=== PATIENT | female | born 1935 | race Caucasian/White ===

== ENCOUNTER 2019-12-19 18:26 | Inpatient (IN) | payer MEDICARE, OTHER ==
[~2019-12-19] VITALS: Ht 160 cm; Wt 61.7 kg
--- NOTE | 2019-12-19 19:03 | NUR ---
[employer]EW[employer] VARGHESE SAXENA CALLED FOR EVALUATION.
[2019-12-19] MEDS ORDERED: FERR325T23 PO (19:06)
[2019-12-19] MEDS ORDERED: ASCO-352 PO (19:06)
[2019-12-19] MEDS ORDERED: MULT-1200 PO (19:06)
[2019-12-19] MEDS ORDERED: MIRT15TA7 PO (19:06)
[2019-12-19] MEDS ORDERED: PRAV40TA3 PO (19:06)
[2019-12-19] MEDS ORDERED: CLON1TAB12 PO (19:06)
[2019-12-19] MEDS ORDERED: ASPI-1169 PO (19:06)
[2019-12-19] MEDS ORDERED: OLAN5TAB3 PO ×2 (19:06)
[2019-12-19] MEDS ORDERED: FLUO40CA49 PO (19:06)
[2019-12-19] MEDS ORDERED: LEVO25TA9 PO (19:06)
[2019-12-19] MEDS ORDERED: CALC1TAB30 PO (19:06)
--- NOTE | 2019-12-19 19:46 | NUR ---
PINKY, PSYCH ER NURSE AT BEDSIDE FOR EVAL
--- NOTE | 2019-12-19 20:05 | NUR ---
PER RN SUP PT ASSIGNED TO 212-B
--- NOTE | 2019-12-19 20:21 | NUR ---
REPORT GIVEN TO HEMANTH POPE FOR PAULA
[2019-12-19] MEDS ORDERED: MAGNESIUM HYDROXIDE 30 ML UDC PO PRN (22:00)
[2019-12-19] MEDS ORDERED: LORAZEPAM 0.5 MG TABLET PO PRN (22:00)
[2019-12-19] MEDS: ATORVASTATIN 10 MG TABLET PO SCH (22:00)
[2019-12-19] MEDS ORDERED: MAG HYDROX/AL HYDROX/SIMETH 30 ML UDC PO PRN (22:00)
[2019-12-19] MEDS ORDERED: ACETAMINOPHEN 325 MG TABLET PO PRN (22:00)
[2019-12-19 22:20] VITALS: BP 142/80
--- NOTE | 2019-12-19 22:48 | NUR ---
GPS RN NOTES: REFUSED LIPITOR PT REFUSED LIPITOR ORDERED. PT STATED, "IM TIRED." EXPLAIN RISKS AND BENEFITS. PY STILL REFUSED X3. CONTINUE TO MONITOR.
--- NOTE | 2019-12-20 00:35 | NUR ---
GPS RN NOTES: ADMISSION ADMITTED 84 YEAR OLD FEMALE. PT ADMITTED FROM [facility] TO [facility] ON 5150 DTS. PT ORIGINALLY FROM HOME AND LIVES WITH HER DAUGHTER MAGDIEL. PER HOLD PT CAME DUE TO HEARING VOICES TELLING HER TO KILL HERSELF AND THE VOICES ARE THREATENING HER THAT THEY WILL KILL HER AND TORTURE HER AND TO TAKE 30-40 TABLETS OF HALDOL. UPON FACE TO FACE ASSESSMENT PT IS A/O X2, COOPERATIVE, FORGETFUL, FLAT AFFECT, DEPRESSED, ANXIOUS, RESERVED, GUARDED, QUIET, SAD, DISORGANIZED, AND FLAT AFFECT. PT DENIES SI/HI AT THIS TIME. PT REFUSED TO SIGN CONSENT PAPERS DUE TO FEELING TIRED. ENVIRONMENTAL SAFETY CHECK DONE Q15 MIN. ENCOURAGE TO VERBALIZE THOUGHTS AND FEELINGS TO STAFF. ORIENTED PT TO THE UNIT. NURSING ASSESSMENT DONE. SKIN ASSESSMENT DONE WITH NOTED LEFT CHEST PACEMAKER, RIGHT FOREARM DISCOLORATION, LEFT AND RIGHT WRIST DISCOLORATION. MED RECON DONE BY TAX ASSOCIATE ATTORNEY MD VEGA . DR CANALES NOTIFIED AND AWARE OF PTS ADMISSION. PT STATED FLU VACCINE DONE ON 12/04/19. INITIAL BLOOD SUGAR CHECK DONE WITH RESULTS 101. PT RIGHTS DISCUSSED BY SHAREPOINT CONSULTANT. PROVIDED PT WITH HANDBOOK AND MED GUIDE. NO SOB. BREATHING EVEN AND UNLABORED. BED ALARM ON. NO PAIN AT THIS TIME. NO RESP DISTRESS.
[2019-12-20 07:17] LABS: BASOPHILS % (AUTO) 0.9 % (0.0-2.0); EOSINOPHILS % (AUTO) 3.1 % (0.0-6.0); HEMATOCRIT 34 % (33-45); HEMOGLOBIN 11.2 g/dL (11.5-14.8); LYMPHOCYTES # (AUTO) 1.3 /CMM (0.8-4.8); LYMPHOCYTES % (AUTO) 30.4 % (20.0-44.0); MEAN CORPUSCULAR HGB CONC 33 g/dl (31.0-36.0); MEAN CORPUSCULAR VOLUME 96 fL (82-100); MONOCYTES # (AUTO) 0.4 /CMM (0.1-1.30); MONOCYTES % (AUTO) 8.9 % (2.0-12.0); NEUTROPHILS # (AUTO) 2.4 /CMM (1.8-8.9); NEUTROPHILS % (AUTO) 56.7 % (43.0-81.0); PLATELET COUNT (AUTO) 106 /CMM (150-450); WHITE BLOOD COUNT (AUTO) 4.2 K/uL (4.3-11.0)
[2019-12-20 07:40] LABS: ALBUMIN 2.8 g/dL (3.4-5.0); BILIRUBIN,TOTAL 0.5 mg/dL (0.2-1.0); CALCIUM, SERUM 8.6 mg/dL (8.5-10.1); CREATININE 1.3 mg/dL (0.6-1.3); MAGNESIUM 2.3 mg/dL (1.8-2.4); PHOSPHORUS 2.8 mg/dL (2.5-4.9); TOTAL PROTEIN, SERUM 6.4 g/dL (6.4-8.2)
[2019-12-20 07:48] LABS: THYROID STIMULATING HORMONE 4.256 uIU/mL (0.358-3.74)
[2019-12-20 08:00] VITALS: BP 138/65
[2019-12-20] MEDS ORDERED: MISCELLANEOUS MED 1 EA EA XX ONE (08:30)
[2019-12-20] MEDS: ASPIRIN 81 MG TAB.CHEW PO SCH (08:57)
[2019-12-20] MEDS: LEVOTHYROXINE SODIUM 25 MCG TABLET PO SCH (08:57)
[2019-12-20] MEDS: FERROUS SULFATE (325 MG) 325 MG/TAB TABLET PO SCH (08:57)
[2019-12-20] MEDS: ASCORBIC ACID 500 MG TABLET PO SCH (08:57)
[2019-12-20] MEDS: CALCIUM CARB 250MG /VITAMIN D 1 UDTAB PO SCH (08:57)
[2019-12-20] MEDS: MULTIPLE VIT (LYCOPENE/FA/MV,CA,IRON,MIN/LUT)1 TAB PO SCH (08:58)
[2019-12-20] MEDS ORDERED: FIXODENT DENTURE ADHESIVE TUBE MM PRN (10:00)
--- NOTE | 2019-12-20 10:12 | NUR ---
FAMILY CONTACT: SW contacted pts daughter Jhoana ([phone]) who confirmed pt is able to return to her home once stable for discharge. Per daughter, she states that pt has never had any history of mental illness and states that her psychosis was a sudden onset and states that it began with pt having a dream in April and states that from there pt began having auditory and visual hallucinations. Daughter states pt was seen by a neurologist and had several brain scans done that were all normal. Daughter states that pt overdosed on Haldol due to the voices telling her they were going to kill her. Per daughter, pts psychiatrist believes pt has Schizophrenia, however, daughter states pt has no prior mental health history or symptoms.
--- NOTE | 2019-12-20 11:36 | NUR ---
INITIAL DISCHARGE PLAN: Pt wishes to return to her daughter Jhoana's house [address] [place], [address], where pt currently lives. Per Jhoana ([phone]) pt is able to return once stable for dicharge. HENNA will help form a safe and proper discharge in collaboration with . Addendum: 12/25/19 at 1412 by ELIANE AGUILLON Daughter house address: [address] [place] [address].
--- NOTE | 2019-12-20 14:15 | NUR ---
GROUP NOTE: SW encouraged pt attend group therapy on this day. Pt stated that she wanted to remain in her as she stated her voices were telling her not to go outside. Pt appears paranoid and fearful, SW assessed for suicidal ideation and pt stated that she does not want to kill herself but the voices keep "bothering her." SW provided supportive listening and reassurance that she was safe. SW encourage pt to continue reporting to staff regarding her voices and suicidal ideation.
[2019-12-20 14:42] LABS: BILIRUBIN,URINE NEGATIVE (NEGATIVE); BLOOD, URINE SMALL Ery/uL (NEGATIVE); COLOR,URINE YELLOW (YELLOW); LEUKOCYTE ESTERASE ,URINE LARGE (NEGATIVE); NITRITE, URINE NEGATIVE (NEGATIVE); PROTEIN,URINE NEGATIVE (NEGATIVE); UGLUCOSE NEGATIVE (NEGATIVE); UROBILINOGEN,URINE 0.2 EU/dL (0.2)
[2019-12-20 15:10] LABS: BACTERIA,URINE 2+ /HPF (None Seen); SQUAMOUS EPITHELIAL CELL,UR 0-2 /HPF (None Seen); WBC,URINE 81-100 /HPF (0-3)
[2019-12-20] MEDS: risperiDONE 0.25 MG TABLET PO SCH (15:32)
[2019-12-20 16:00] VITALS: BP 120/53
--- NOTE | 2019-12-20 16:51 | NUR ---
GPS/RN-NOTES DR. METZ MADE AWARE OF PATIENT URINE RESULTS WITH ORDER OF MACROBID 100MG P.O BID X 5 DAYS AND DO URINE CULTURE.NOTED AND CARRIED OUT. VERIFIED WITH DR. METZ REGARDING MACROBID HAS INTERACTIONS WITH MILK PRODUCTS WHICH IS PATIENT HAD ALLERGY. DR. METZ STATED TO VERIFY WITH THE PHARMACY. ABLE BODIED TANKERMAN SPOKE TO LANDY ( PHARMACIES) AND STATED IT'S OK I WILL GO AHEAD AND OVERRIDE IT.
--- NOTE | 2019-12-20 17:20 | NUR ---
GPS/RN-NOTES RECEIVED T.O ORDER FROM DR. CANALES TO DISCONTINUE REMERON 15MG P.O QHS. NOTED AND CARRIED OUT.
[2019-12-20] MEDS: NITROFURANTOIN/NITROFURAN MAC 100 MG CAPSULE PO SCH (17:35)
[2019-12-20 19:49] VITALS: BP 128/61
[2019-12-20] MEDS: TRAZODONE 50 MG TABLET PO SCH (21:26)
[2019-12-20] MEDS: ATORVASTATIN 10 MG TABLET PO SCH (21:26)
[2019-12-20] MEDS ORDERED: MIRTAZAPINE 15 MG TABLET PO SCH (22:00)
[2019-12-21] MEDS: risperiDONE 0.25 MG TABLET PO SCH ×2 (03:24→15:29)
[2019-12-21 08:00] VITALS: BP 131/58
[2019-12-21] MEDS: MULTIPLE VIT (LYCOPENE/FA/MV,CA,IRON,MIN/LUT)1 TAB PO SCH (08:11)
[2019-12-21] MEDS: FERROUS SULFATE (325 MG) 325 MG/TAB TABLET PO SCH (08:14)
[2019-12-21] MEDS: LEVOTHYROXINE SODIUM 25 MCG TABLET PO SCH (08:14)
[2019-12-21] MEDS: NITROFURANTOIN/NITROFURAN MAC 100 MG CAPSULE PO SCH ×2 (08:14→16:38)
[2019-12-21] MEDS: ASCORBIC ACID 500 MG TABLET PO SCH (08:14)
[2019-12-21] MEDS: CALCIUM CARB 250MG /VITAMIN D 1 UDTAB PO SCH (08:14)
[2019-12-21] MEDS: ASPIRIN 81 MG TAB.CHEW PO SCH (08:14)
--- NOTE | 2019-12-21 20:00 | NUR ---
GPS RN NOTE: Received patient from morning nurse. Patient in bed, awake and alert. Able to make needs known. Patient does not complain of pain or discomfort at this time. Patient breathing well, no SOB or acute respiratory distress. Breathing equal and unlabored. Patient ambulatory with steady gait. Safety precaution in place, bed in the lowest level, bed is locked, side rails x2 are up, and call light is within reach. Will continue to monitor.
[2019-12-21 20:01] VITALS: BP 155/63
[2019-12-21] MEDS: ATORVASTATIN 10 MG TABLET PO SCH (21:47)
[2019-12-21] MEDS: TRAZODONE 50 MG TABLET PO SCH (21:47)
[2019-12-22] MEDS: risperiDONE 0.25 MG TABLET PO SCH ×2 (03:34→08:04)
[2019-12-22] MEDS: NITROFURANTOIN/NITROFURAN MAC 100 MG CAPSULE PO SCH ×2 (08:04→16:13)
[2019-12-22] MEDS: LEVOTHYROXINE SODIUM 25 MCG TABLET PO SCH (08:04)
[2019-12-22] MEDS: ASPIRIN 81 MG TAB.CHEW PO SCH (08:04)
[2019-12-22] MEDS: FERROUS SULFATE (325 MG) 325 MG/TAB TABLET PO SCH (08:04)
[2019-12-22] MEDS: ASCORBIC ACID 500 MG TABLET PO SCH (08:05)
[2019-12-22] MEDS: MULTIPLE VIT (LYCOPENE/FA/MV,CA,IRON,MIN/LUT)1 TAB PO SCH (08:05)
[2019-12-22] MEDS: CALCIUM CARB 250MG /VITAMIN D 1 UDTAB PO SCH (08:06)
[2019-12-22 08:24] VITALS: BP 159/91
[2019-12-22 16:00] VITALS: BP 125/62
[2019-12-22 20:27] VITALS: BP 145/74
[2019-12-22] MEDS: TRAZODONE 50 MG TABLET PO SCH (21:11)
[2019-12-22] MEDS: ATORVASTATIN 10 MG TABLET PO SCH (21:11)
[2019-12-23] MEDS: risperiDONE 0.25 MG TABLET PO SCH ×2 (03:19→15:49)
[2019-12-23] MEDS: LEVOTHYROXINE SODIUM 25 MCG TABLET PO SCH (07:30)
[2019-12-23 08:00] VITALS: BP 155/60
[2019-12-23] MEDS: FERROUS SULFATE (325 MG) 325 MG/TAB TABLET PO SCH (08:52)
[2019-12-23] MEDS: NITROFURANTOIN/NITROFURAN MAC 100 MG CAPSULE PO SCH ×2 (08:52→17:34)
[2019-12-23] MEDS: CALCIUM CARB 250MG /VITAMIN D 1 UDTAB PO SCH (08:52)
[2019-12-23] MEDS: ASPIRIN 81 MG TAB.CHEW PO SCH (08:52)
[2019-12-23] MEDS: MULTIPLE VIT (LYCOPENE/FA/MV,CA,IRON,MIN/LUT)1 TAB PO SCH (08:57)
[2019-12-23] MEDS: ASCORBIC ACID 500 MG TABLET PO SCH (08:58)
[2019-12-23 09:41] LABS: CALCIUM, SERUM 9.3 mg/dL (8.5-10.1); CREATININE 1.3 mg/dL (0.6-1.3); POTASSIUM 3.9 mmol/L (3.5-5.1)
[2019-12-23 16:00] VITALS: BP 126/58
[2019-12-23 20:00] VITALS: BP 102/60
[2019-12-23] MEDS: TRAZODONE 50 MG TABLET PO SCH (22:23)
[2019-12-23] MEDS: ATORVASTATIN 10 MG TABLET PO SCH (22:23)
[2019-12-24] MEDS: risperiDONE 0.25 MG TABLET PO SCH ×2 (03:26→15:20)
[2019-12-24] MEDS: LEVOTHYROXINE SODIUM 25 MCG TABLET PO SCH (07:03)
[2019-12-24 08:00] VITALS: BP 113/60
--- NOTE | 2019-12-24 08:26 | NUR ---
UR NOTE: AUTHORIZATION#[id number] OBTAINED FROM ALENA Casiano WITH [facility] [employer] @ [phone]. 3 DAYS APPROVED WITH REVIEW DUE 12/21/2019. CALL "SCOTTY" AKJosette BEHAVIORAL ADMINISTRATIVE SUPPORT TEAM FOR CONCURRENT REVIEW @ [phone]. HENNA contacted BEHAVIORAL ADMINISTRATIVE SUPPORT TEAM FOR CONCURRENT REVIEW @ [phone]. Pt was assigned to cyanide case hardener Nilesh ([phone] ex: [phone]) HENNA contacted Nilesh and left a voicemail with concurrent review.
[2019-12-24] MEDS: CALCIUM CARB 250MG /VITAMIN D 1 UDTAB PO SCH (08:29)
[2019-12-24] MEDS: FERROUS SULFATE (325 MG) 325 MG/TAB TABLET PO SCH (08:29)
[2019-12-24] MEDS: ASCORBIC ACID 500 MG TABLET PO SCH (08:29)
[2019-12-24] MEDS: ASPIRIN 81 MG TAB.CHEW PO SCH (08:29)
[2019-12-24] MEDS: NITROFURANTOIN/NITROFURAN MAC 100 MG CAPSULE PO SCH ×2 (08:29→17:13)
[2019-12-24] MEDS: MULTIPLE VIT (LYCOPENE/FA/MV,CA,IRON,MIN/LUT)1 TAB PO SCH (08:30)
--- NOTE | 2019-12-24 09:00 | NUR ---
RN NOTE- PT QUIET WITHDRAWN MED COMPLIANT PO INTAKE FAIR SPEAKING MOSTLY W ROOM MATE AND INTERACTIVE W HER AND STAFF. PT DENIES SI HI AH VH. NEEDS ATTENDED, ENCOURAGED INTERACTION AND ADLS
--- NOTE | 2019-12-24 09:46 | NUR ---
UR NOTE: SW received a call from [facility] case folder Nilesh ([phone] ex: [phone]) stating pt has been approved additional days from 12/22/19-12/25/2019 with review due on Tuesday12/26/19.
--- NOTE | 2019-12-24 14:36 | NUR ---
GROUP NOTE: SW encouraged pt attend group therapy on this day. Pt refused to attend stating she wanted to remain in her room and continue her conversation with her roommate. SW assessed pt for suicidal ideation. Pt states she is not longer hearing voices that are telling her to kill herself. Pt wishes to be discharged home soon and states she no longer needs to be hospitalized.
[2019-12-24 16:00] VITALS: BP 135/89
[2019-12-24 19:51] VITALS: BP 120/57
[2019-12-24 19:54] VITALS: BP 120/57
[2019-12-24] MEDS: ATORVASTATIN 10 MG TABLET PO SCH (21:28)
[2019-12-24] MEDS: TRAZODONE 50 MG TABLET PO SCH (21:29)
[2019-12-25] MEDS: risperiDONE 0.25 MG TABLET PO SCH ×2 (03:14→18:15)
[2019-12-25] MEDS: LEVOTHYROXINE SODIUM 25 MCG TABLET PO SCH (06:42)
[2019-12-25 08:00] VITALS: BP 133/60
[2019-12-25] MEDS: NITROFURANTOIN/NITROFURAN MAC 100 MG CAPSULE PO SCH (08:59)
[2019-12-25] MEDS: CALCIUM CARB 250MG /VITAMIN D 1 UDTAB PO SCH (08:59)
[2019-12-25] MEDS: ASCORBIC ACID 500 MG TABLET PO SCH (08:59)
[2019-12-25] MEDS: ASPIRIN 81 MG TAB.CHEW PO SCH (08:59)
[2019-12-25] MEDS: FERROUS SULFATE (325 MG) 325 MG/TAB TABLET PO SCH (08:59)
--- NOTE | 2019-12-25 09:00 | NUR ---
RN NOTE- PT ALERT ORIENTED INTERACTIVE SELECTIVELY, MED COMPLIANT DENIES SI HI AH VH NO BEHAVIORAL ISSUES NOTED, FOCUS ON DC
[2019-12-25] MEDS: MULTIPLE VIT (LYCOPENE/FA/MV,CA,IRON,MIN/LUT)1 TAB PO SCH (09:01)
--- NOTE | 2019-12-25 11:00 | NUR ---
PC HEARING: pts daughter Jhoana ([phone]) was present during pts PC hearing, pts hold was upheld for gravely disabled.
--- NOTE | 2019-12-25 11:59 | NUR ---
FAMILY CONTACT: SW contacted pts daughter Jhoana ([phone]) to inform her pt will be discharged tomorrow 12/26/19. Daughter states that she will pick pt up at 12:00pm. Daughter also stated that she will be contacting pts psychiatrist Dr. Herrera Oliver [phone] [address] to schedule an appointment as she wants to make sure pts appointment is scheduled on a day daughter is available.
--- NOTE | 2019-12-25 12:03 | NUR ---
COORDINATION OF CARE: SW contacted psychiatrist Dr. Herrera Oliver [address] [facility] [address] [place] [address] and informed pocket secretary assembler of pts discharge for tomorrow 12/26/19. Per doctors office the MD is only seeing pts by Telehealth. SW informed pocket secretary assembler that pts daughter will be calling to schedule and appointment. HENNA also stated that clinicals will be faxed on this present day.
--- NOTE | 2019-12-25 12:17 | NUR ---
COORDINATION OF CARE: HENNA faxed clinicals to psychiatrist Dr. Herrera Oliver [address] [address] .
--- NOTE | 2019-12-25 15:29 | NUR ---
RN NOTE- NOTICED RISPERDAL BEING GIVEN AT 1500 AND [address]300[address] THROUGH [address] CANALES AND NOTES AND FOUND NO REASON TO WAKE PT UP ON NOC SHIFT. CALLED PHARMACY AND CHECKED. GOING TO HOLD 1500 DOSE AND RESTART AT 1800 AND 0600.
[2019-12-25 16:00] VITALS: BP 107/52
[2019-12-25 19:54] VITALS: BP 126/62
[2019-12-25] MEDS: ATORVASTATIN 10 MG TABLET PO SCH (21:05)
[2019-12-25] MEDS: TRAZODONE 50 MG TABLET PO SCH (21:05)
[2019-12-26] MEDS: risperiDONE 0.25 MG TABLET PO SCH (05:32)
[2019-12-26] MEDS ORDERED: LEVOTHYROXINE SODIUM 25 MCG TABLET PO SCH (07:30)
[2019-12-26 08:00] VITALS: BP 117/64
[2019-12-26] MEDS: FERROUS SULFATE (325 MG) 325 MG/TAB TABLET PO SCH (08:48)
[2019-12-26] MEDS: ASPIRIN 81 MG TAB.CHEW PO SCH (08:48)
[2019-12-26] MEDS: MULTIPLE VIT (LYCOPENE/FA/MV,CA,IRON,MIN/LUT)1 TAB PO SCH (08:57)
[2019-12-26] MEDS: ASCORBIC ACID 500 MG TABLET PO SCH (08:57)
[2019-12-26] MEDS: CALCIUM CARB 250MG /VITAMIN D 1 UDTAB PO SCH (08:57)
--- NOTE | 2019-12-26 09:00 | NUR ---
DISCHARGE NOTE: Pt will be discharged at 12:00pm via private vehicle to her daughter home [address] [place] [address]. Pts daughter Jhoana ([phone]) will be picking pt up. Pts mood is euthymic with congruent affect. Pt denies visual/auditory hallucinations and denies suicidal/homicidal ideation. Pt is alert and oriented x4, to is ambulatory and appears appropriately dressed and groomed. Per pts daughter's request she will be scheduling a follow up appointment with Psychiatrist: Dr. Herrera Oliver [address] [facility] [address] [place] [address] and Derrick Man: Dr. Gypsy Osborn Address: [address] [place] [address] [address], [place] [address] . The multidisciplinary exit care form was done, printed, signed, and given to the patient.
--- NOTE | 2019-12-26 09:15 | NUR ---
UR NOTE: SW contacted [facility] field case manager Nilesh ([phone] ex: [phone]) to complete a discharge clinical via voicemail.
--- NOTE | 2019-12-26 09:42 | NUR ---
GPS/RN-NOTES RECEIVED T.O DISCHARGE ORDER FROM [facility] AND TO CONTINUE ROUTINE MEDICATIONS. NOTED AND CARRIED OUT.
--- NOTE | 2019-12-26 12:15 | NUR ---
NURSING DISCHARGE NOTE: PATIENT DISCHARGED TODAY AT 1215 TO HER DAUGHTERS HOUSE LOCATED AT [address] [place], [address]. . PATIENT LEFT THE UNIT VIA WHEELCHAIR ACCOMPANIED BY 2 STAFF TO THE MAIN LOBBY AND PICKED UP BY HER SON IN LAW TO PRIVATE VEHICLE. PATIENT IS IN STABLE CONDITION. VSS. NO ACUTE DISTRESS NOTED. NO COMPLAINTS. COMPLIANT WITH MEDICATION MANAGEMENT. COOPERATIVE WITH PLAN OF CARE. PSYCHIATRIC TREATMENT PLANS MET. MEDICAL TREATMENT PLANS DEFERRED FOR CONTINUAL MONITORING. DENIES SI/HI/AVH AT THE TIME OF DISCHARGE. SKIN CHECK DONE PICTURES TAKEN AND PLACED IN THE CHART. EDUCATED PATIENT ABOUT AFTERCARE WITH COPY PROVIDED. RETURNED PERSONAL BELONGINGS TO PATIENT. MEDICATIONS RECONCILED WITH ALONG WITH PSYCHIATRIC DISCHARGE ORDERS. DISCHARGE PAPERWORK SIGNED. FOR FOLLOW UP WITH PSYCHIATRIST AND SQL SERVER BI DEVELOPER WITHIN 1 WEEK.
== END 2019-12-26 12:15 | disposition home or self-care (01) | DRG 885 ==
LOC: ER 18:36 → GPS 20:20
PROVIDERS: ADMIT Psychiatry & Neurology Psychiatry
DX: F25.9 Schizoaffective disorder, unspecified (principal); N18.9 Chronic kidney disease, unspecified; N17.9 Acute kidney failure, unspecified; R45.851 Suicidal ideations; F32.9 Major depressive disorder, single episode, unspecified; F03.90 Unspecified dementia, unspecified severity, without behavioral disturbance, psychotic disturbance, mood disturbance, and anxiety; E03.9 Hypothyroidism, unspecified; F29 Unspecified psychosis not due to a substance or known physiological condition; I12.9 Hypertensive chronic kidney disease with stage 1 through stage 4 chronic kidney disease, or unspecified chronic kidney disease; T43.4X2 Poisoning by butyrophenone and thiothixene neuroleptics, intentional self-harm
CPT/HCPCS: 36415; 80048-TC; 80053-TC; 80061-TC; 81000-TC; 82962-TC; 83735-TC; 84100-TC; 84443-TC; 85025-TC; 87081-TC; 87086-TC